=== PATIENT | male | born 1995 | race African-American/Black ===

== ENCOUNTER 2021-04-09 20:35 | Emergency (ER) | payer OTHER ==
[2021-04-09 21:05] VITALS: BP 140/79; PULSE 54; TEMP 98.9; BMI 22.4
== END 2021-04-09 21:01 | disposition home or self-care (01) ==
LOC: FER 20:35
DX: S01.81XA Laceration without foreign body of other part of head, initial encounter (principal); V00.131A Fall from skateboard, initial encounter; Y93.51 Activity, roller skating (inline) and skateboarding
CPT/HCPCS: 99281-25

== ENCOUNTER 2022-04-10 21:11 | Emergency (ER) | payer OTHER ==
[2022-04-10 21:17] VITALS: BP 119/76; PULSE 72; RESP 16; TEMP 98.9; BMI 23.7
[2022-04-10] MEDS ORDERED: KETOROLAC TROMETHAMINE 60 MG/2 ML VIAL IM ONE (21:19)
[2022-04-10] MEDS ORDERED: CLINDAMYCIN HCL 300 MG CAPSULE PO ONE (21:19)
[2022-04-10] MEDS ORDERED: CLINDAMYCIN HCL 150 MG CAPSULE (FP) ONE (21:19)
[2022-04-10] MEDS ORDERED: KETOROLAC TROMETHAMINE 60 MG/2 ML VIAL ONE (21:19)
== END 2022-04-10 21:29 | disposition home or self-care (01) ==
LOC: FER 21:11
PROC: 3E0233Z Introduction of Anti-inflammatory into Muscle, Percutaneous Approach (ICD-10-PCS; principal; 2022-04-10)
DX: K05.5 Other periodontal diseases (principal)
CPT/HCPCS: 99284-25

== ENCOUNTER 2022-09-17 11:56 | Emergency (ER) | payer OTHER ==
[2022-09-17 12:16] VITALS: BP 113/68; PULSE 64; RESP 20; TEMP 98; BMI 23.1
[2022-09-17] MEDS ORDERED: LIDO 2%/EPI 1:200000 PRESRVFRE (20 ML SDVIAL) ONE (13:12)
== END 2022-09-17 14:28 | disposition home or self-care (01) ==
LOC: FER 11:56
PROC: 0HQ1XZZ Repair Face Skin, External Approach (ICD-10-PCS; principal; 2022-09-17)
DX: S01.511A Laceration without foreign body of lip, initial encounter (principal); W50.0XXA Accidental hit or strike by another person, initial encounter; Y93.61 Activity, american tackle football
CPT/HCPCS: 99283-25

== ENCOUNTER 2023-09-24 10:59 | Emergency (ER) | payer BC, OTHER ==
[2023-09-24 13:01] VITALS: BP 127/75; PULSE 58; RESP 20; TEMP 98; BMI 24.4
== END 2023-09-24 12:00 | disposition home or self-care (01) ==
LOC: FER 10:59
PROC: 2W3RX1Z Immobilization of Left Lower Leg using Splint (ICD-10-PCS; principal; 2023-09-24)
DX: S86.002A Unspecified injury of left Achilles tendon, initial encounter (principal); X50.1XXA Overexertion from prolonged static or awkward postures, initial encounter; Y93.67 Activity, basketball
CPT/HCPCS: 73610-TC-LT-FY; 99283-25